=== PATIENT | female | born 1975 | race Caucasian/White ===

== ENCOUNTER → 2019-11-05 | Outpatient (CLI) | payer BC ==
--- NOTE | 2019-11-05 18:48 | RADIOLOGY REPORT (SQ) ---
EXAM DESCRIPTION: CERV SP 3 VIEW OR LESS COMPLETED DATE/TIME: 11/05/2019 5:59 pm REASON FOR STUDY: (Z98.1)ARTHRODESIS STATUS Z98.1 ARTHRODESIS STATUS COMPARISON: None. NUMBER OF VIEWS: Three views. TECHNIQUE: AP, lateral and odontoid radiographic images acquired of the cervical spine. LIMITATIONS: None. FINDINGS: Patient is status post posterior decompression and fusion C3 through C6 with anterior plat e and screws C4 through C6, anterior screws and disc prosthesis C3- 4, interlaminar fixation C3 throu gh C6. Bony fusion C4 through C6. Alignment is anatomic. IMPRESSION: Satisfactory postop spine. TECHNICAL DOCUMENTATION: JOB ID: [id number] [employer]- All Rights Reserved Reading location - IP/workstation name: [email or web address]
== END ==
LOC: RAD 17:38
PROVIDERS: ATTEND Nurse Practitioner Adult Health
DX: Z98.1 Arthrodesis status (principal)
CPT/HCPCS: 72040